=== PATIENT | male | born 1985 | race Caucasian/White ===

== ENCOUNTER 2021-12-13 22:40 | Inpatient (IN) | payer MEDICAID ==
[~2021-12-13] VITALS: Ht 172.7 cm; Wt 74.8 kg
[2021-12-13 22:46] VITALS: BP 140/90
--- NOTE | 2021-12-13 22:46 | NUR ---
Place on bed 6. Patient in hospital gown. Personal belongings removed from room and stored . Patient desire to harm self. Potentially harmful items removed from room. Under direct observation of RN.
--- NOTE | 2021-12-13 22:55 | NUR ---
Dr. Sims at bedside to exam patient.
--- NOTE | 2021-12-13 22:55 | NUR ---
biba to bed 6 on 5150 after being found wandering around store, incoherent. Pt is non sensical at this time, talking to self., unable to answer direct questions. PD at bedside.room cleared of moveable apparatus. pt in direct line of sigjt PMHx: Unknown.
[2021-12-13] MEDS ORDERED: OLANZapine 10 MG VIAL IM PRN (23:00)
[2021-12-13] MEDS ORDERED: diphenhydrAMINE 50 MG/ML VIAL IM PRN (23:00)
[2021-12-13] MEDS ORDERED: LORazepam 2 MG/ML VIAL IM PRN (23:00)
--- NOTE | 2021-12-13 23:11 | NUR ---
in bathroom attempting to get ua
--- NOTE | 2021-12-13 23:24 | NUR ---
UA TO LAB
--- NOTE | 2021-12-13 23:25 | NUR ---
PT'S BELONGINGS COLLECTED BY SECURITY AND TAKEN FOR STORAGE IN SAFE.
[2021-12-13 23:38] LABS: BASOPHILS # (AUTO) 0.1 K/uL (0.00-0.22); BASOPHILS % (AUTO) 0.8 % (0.0-2.0); EOSINOPHILS # (AUTO) 0.2 K/uL (0-0.4); EOSINOPHILS % (AUTO) 2.1 % (0.0-4.0); HEMATOCRIT 35.3 % (36-52); HEMOGLOBIN 11.9 g/dL (12.0-18.0); LYMPHOCYTES # (AUTO) 3.4 K/uL (2.0-11.5); LYMPHOCYTES % (AUTO) 30.5 % (20.5-51.1); MEAN CORPUSCULAR HEMOGLOBIN 29 pg (27-31); MEAN CORPUSCULAR HGB CONC 34 g/dL (33-37); MEAN CORPUSCULAR VOLUME 85.5 fL (80-94); MONOCYTES # (AUTO) 1.1 K/uL (0.8-1.0); MONOCYTES % (AUTO) 10.2 % (1.7-9.3); NEUTROPHILS # (AUTO) 6.2 K/uL (1.8-7.7); NEUTROPHILS % (AUTO) 56.4 % (42.2-75.2); PLATELET COUNT (AUTO) 371 K/uL (140-450); RED BLOOD CELL COUNT(AUTO) 4.13 MIL/uL (4.20-6.10); RED CELL DISTRIBUTION WIDTH 13.2 % (11.6-13.7)
--- NOTE | 2021-12-13 23:51 | NUR ---
TELE-PSYCH EVALUATION IN PROGRESS
[2021-12-14 00:09] LABS: ALBUMIN 3.5 g/dL (3.4-5.0); ANION GAP 10.4 (8-16); ASPARTATE AMINOTRANSFERASE 28 U/L (15-37); CARBON DIOXIDE 27.2 mmol/L (21-32); CHLORIDE 104 mmol/L (98-107); CREATININE 1.1 mg/dL (0.6-1.3); GFR ARICAN-AMERICAN 96 mL/min (>90); GLUCOSE 97 mg/dL (74-106); POTASSIUM 3.6 mmol/L (3.5-5.1); SODIUM SERUM 138 mmol/L (136-145); TOTAL BILIRUBIN 0.3 mg/dL (0.0-1.0); UREA NITROGEN, BLOOD 24 mg/dL (7-18)
[2021-12-14 00:10] LABS: ACETAMINOPHEN < 0.5 ug/ml (10-30); SALICYLATE < 2.8 mg/dL (2.8-20.0)
[2021-12-14 00:27] LABS: BARBITURATE, URINE NEGATIVE ng/ml (NEG <=200); BENZODIAZEPINE, URINE NEGATIVE ng/mL (NEG <=200); COCAINE, URINE NEGATIVE ng/mL (NEG <=300)
[2021-12-14 00:28] LABS: CANNABINOID, URINE POSITIVE ng/mL (NEG <=50); OPIATE, URINE NEGATIVE ng/mL (NEG <=2000); PHENCYCLIDINE SCREEN,URINE NEGATIVE ng/mL (NEG <=25)
--- NOTE | 2021-12-14 00:50 | NUR ---
PT MEDICALLY CLEARED AND CLINICALS FAXED TO [facility] FOR PLACEMENT
--- NOTE | 2021-12-14 02:00 | NUR ---
RESTING IN BED WITH EYES CLOSED. RESPIRATIONS REGULAR AND UNLABORED
--- NOTE | 2021-12-14 03:00 | NUR ---
SCAR SWAB OBTAINED AND SENT TO LAB
--- NOTE | 2021-12-14 06:00 | NUR ---
CONTINUES TO REST WITH EYES CLOSED. RESPIRATIONS REGULAR AND UNLABORED
--- NOTE | 2021-12-14 07:07 | NUR ---
AWAKE, AMBULATED TO BATHROOM THEN BACK TO BED.
[2021-12-14] MEDS ORDERED: OLANZapine 5 MG ODT PO PRN (07:15)
--- NOTE | 2021-12-14 08:11 | NUR ---
PT IN BED, EATING HIS BREAKFAST.
--- NOTE | 2021-12-14 12:04 | NUR ---
PT EATING HIS LUNCH.
--- NOTE | 2021-12-14 14:03 | NUR ---
PT PROVIDED WITH SANDWHICH, JUICE, JELLO, AND CRACKERS BEDSIDE
--- NOTE | 2021-12-14 14:06 | NUR ---
PT PROVIDED WITH COLORING BOOK, PAPER, AND CRANYONS
[2021-12-14] MEDS: NICOTINE TRANSD SYS 21 MG/24 HR PATCH TD SCH (14:33)
--- NOTE | 2021-12-14 14:33 | NUR ---
NICOTINE PATCH APPLIED ON L UPPER CHEST.
--- NOTE | 2021-12-14 16:42 | NUR ---
Pt report given to Judson freitas. Transfer of care at this time.
[2021-12-14 16:55] VITALS: BP 127/74
--- NOTE | 2021-12-14 16:55 | NUR ---
RECEIVED REPORT FROM ER NURSE. PATIENT WAS TRANSPORTED TO ROOM 109B. PT WAS ADMITTED FOR GRAVELY DISABLED. AOX4, ABLE TO MAKE NEEDS KNOWN. RESPIRATIONS EVEN AND UNLABORED. ON ROOM AIR AND NO DISTRESS NOTED. SKIN IS WARM, DRY, AND INTACT. IV SITE ON LFA 16G INTACT AND PATENT. DENIES DISCOMFORT OR PAIN AT THE MOMENT. ON A 5150 HOLD WITH SITTER AT BEDSIDE. PLAN OF CARE DISCUSSED. SAFETY PRECAUTIONS IN PLACE. CALL LIGHT WITHIN REACH. WILL CONTINUE TO MONITOR.
--- NOTE | 2021-12-14 17:14 | NUR ---
Late note - Intake was received. Information has been sent out to the following facilities for review for placement. [facility] - No male beds today [facility] - [facility] remains on their [facility] list [facility]....they do not take [place] Will continue to assist with placement and keep facility updated with any information regarding placement
--- NOTE | 2021-12-14 18:09 | NUR ---
Intake has also been faxed to [facility]
--- NOTE | 2021-12-14 19:14 | NUR ---
ENDORSED TO PSYCHOLOGICAL EXAMINER NURSE FOR CONTINUITY OF CARE. PT IS STABLE.
--- NOTE | 2021-12-14 19:15 | NUR ---
RECEIVED ENDORSEMENT FROM PATRIZIA PICKARD FOR CONTINUITY OF CARE. PATIENT IS STABLE AND AWAKE. A&OX4 VERBALLY RESPONSIVE AND ABLE TO COMMUNICATE NEEDS. ON ROOM AIR WITH NO APPARENT S/SX OF ACUTE DISTRESS. RESPIRATIONS EVEN AND UNLABORED WITH NO APPARENT S/SX OF ACUTE DISTRESS. PATIENT IS AMBULATORY AND CONTINENT OF VOID AND BM. PATIENT HAS AN IV TO THE LFA 16 INTACT/PATENT SL. PATIENT IS CURRENTLY ON 5150 HOLD WITH AN ACTIVE ORDER. PLAN OF CARE AND WHITE COMMUNICATION BOARD UPDATED. ALL SAFETY MEASURES IN PLACE. BED IN LOW/LOCKED POSITION. CALL LIGHT WITHIN REACH. WILL CONTINUE TO MONITOR.
[2021-12-14 20:00] VITALS: BP 121/70
--- NOTE | 2021-12-14 21:05 | NUR ---
ADMINISTERED SCHEDULED PO MEDICATIONS PER MD ORDER. TOLERATED WELL. DENIES PAIN. RESPIRATIONS EVEN AND UNLABORED WITH NO APPARENT S/SX OF ACUTE DISTRESS. SNACKS PROVIDED. ALL SAFETY MEASURES IN PLACE. BED IN LOW/LOCKED POSITION. SITTER PRESENT. WILL CONTINUE TO MONITOR.
[2021-12-14] MEDS: OLANZapine 2.5 MG TAB PO SCH (21:25)
--- NOTE | 2021-12-15 01:05 | NUR ---
CHECKED PATIENT. PATIENT IS STABLE AND ASLEEP. CHEST IS RISING AND FALLING EVENLY. RESPIRATIONS EVEN AND UNLABORED WITH NO APPARENT S/SX OF ACUTE DISTRESS. 1:1 SITTER PRESENT. ALL SAFETY MEASURES IN PLACE. BED IN LOW/LOCKED POSITION. WILL CONTINUE TO MONITOR.
--- NOTE | 2021-12-15 03:05 | NUR ---
PROVIDED SNACKS PER PATIENT REQUEST. DENIES PAIN. RESPIRATIONS EVEN AND UNLABORED WITH NO APPARENT S/SX OF ACUTE DISTRESS. ALL SAFETY MEASURES IN PLACE. 1:1 SITTER PRESENT. BED IN LOW/LOCKED POSITION. WILL CONTINUE TO MONITOR.
[2021-12-15 04:00] VITALS: BP 107/61
--- NOTE | 2021-12-15 05:05 | NUR ---
ROUNDED ON PATIENT. PATIENT IS STABLE AND ASLEEP. CHEST IS RISING AND FALLING EVENLY. RESPIRATIONS EVEN AND UNLABORED WITH NO APPARENT S/SX OF ACUTE DISTRESS. ALL NEEDS MET. 1:1 SITTER PRESENT. ALL SAFETY MEASURES IN PLACE. BED IN LOW/LOCKED POSITION. WILL CONTINUE TO MONITOR.
--- NOTE | 2021-12-15 07:20 | NUR ---
ENDORSED PATIENT TO PATRIZIA PICKARD FOR CONTINUITY OF CARE. PATIENT IS STABLE.
--- NOTE | 2021-12-15 07:22 | NUR ---
RECEIVED REPORT FROM RELISH BLENDER NURSE FOR CONTINUITY OF CARE. PATIENT WAS TRANSPORTED TO ROOM 109B. AOX4, ABLE TO MAKE NEEDS KNOWN. RESPIRATIONS EVEN AND UNLABORED. ON ROOM AIR AND NO DISTRESS NOTED. SKIN IS WARM, DRY, AND INTACT. IV SITE ON LFA 16G INTACT AND PATENT. DENIES DISCOMFORT OR PAIN AT THE MOMENT. ON A 5150 HOLD WITH SITTER AT BEDSIDE. PLAN OF CARE DISCUSSED. SAFETY PRECAUTIONS IN PLACE. CALL LIGHT WITHIN REACH. WILL CONTINUE TO MONITOR.
[2021-12-15] MEDS ORDERED: OLAN2.5T1 PO (07:46)
[2021-12-15] MEDS: OLANZapine 2.5 MG TAB PO SCH (08:41)
[2021-12-15] MEDS: NICOTINE TRANSD SYS 21 MG/24 HR PATCH TD SCH (08:42)
--- NOTE | 2021-12-15 09:10 | NUR ---
ALL SCHEDULED MEDS GIVEN. PT IS STABLE. NO DISTRESS NOTED. WILL CONTINUE TO MONITOR
--- NOTE | 2021-12-15 09:30 | NUR ---
ENDORSED DISCHARGE INSTRUCTIONS TO PATIENT. PATIENT VERBALIZED UNDERSTANDING AND SIGNED DISCHARGED FORMS.
[2021-12-15 10:29] VITALS: BP 119/76
--- NOTE | 2021-12-15 11:00 | NUR ---
PATIENT DISCHARGED OFF THE UNIT. PT WAS PICKED UP BY A FRIEND AT THE FRONT LOBBY. IV AND ID BAND REMOVED. PATIENT WAS STABLE PRIOR TO DISCHARGE.
== END 2021-12-15 11:10 | disposition home or self-care (01) | DRG 427 ==
LOC: MED 22:40 → MMU 12-14 16:18 → MTU 12-14 16:33
PROVIDERS: ADMIT General Practice; ATTEND General Practice
DX: E05.00 Thyrotoxicosis with diffuse goiter without thyrotoxic crisis or storm (principal); F25.9 Schizoaffective disorder, unspecified; Z20.822 Contact with and (suspected) exposure to COVID-19; Z91.14 Patient's other noncompliance with medication regimen
CPT/HCPCS: 36415; 80053; 80305; 85025; 87081; 87635-QW; C9803-CS; G0480; G0482; J1200; J2060; J3490

== ENCOUNTER 2022-07-29 17:13 | Emergency (ER) | payer MEDICAID ==
[~2022-07-29] VITALS: Ht 179.6 cm; Wt 77.6 kg
[~2022-07-29 17:13] MED LIST: OLAN2.5T1 PO
--- NOTE | 2022-07-29 17:55 | NUR ---
Ruth blake in ED - 07/29/22 at 1858 by [facility] PATIENT LEFT WITHOUT BEING SEEN BY DR. DR BARRY. NO FURTHER CARE PROVIDED FOR PATIENT.
[2022-07-29 18:53] VITALS: BP 106/66
[2022-07-29] MEDS ORDERED: LIDOCAINE/EPI 2% 1:100000 20 ML VIAL INJ ONE (20:50)
--- NOTE | 2022-07-29 20:57 | NUR ---
PT TO BED 05.
--- NOTE | 2022-07-29 21:05 | NUR ---
LIDO AT BEDSIDE. TECH SETTING UP FOR I/D
[2022-07-29] MEDS ORDERED: IBUP-2213 PO (23:34)
[2022-07-29] MEDS ORDERED: CLIN300C61 PO (23:34)
[2022-07-29] MEDS ORDERED: CLINDAMYCIN 150 MG CAP PO ONE (23:35)
[2022-07-29] MEDS ORDERED: IBUPROFEN 600 MG TAB PO ONE (23:35)
[2022-07-29] MEDS ORDERED: ACETAMINOPHEN EXTRA STRENGTH 500 MG TAB PO ONE (23:35)
[2022-07-29 23:51] VITALS: BP 126/80
--- NOTE | 2022-07-29 23:52 | NUR ---
Patient discharged with v/s stable. Written and verbal after care instructions given and explained. Patient alert, oriented and verbalized understanding of instructions. Ambulatory with steady gait. All questions addressed prior to discharge. ID band removed. Patient advised to follow up with PMD. Rx of Clindamycin, Ibuprofen sent electronically. Patient educated on indication of medication including possible reaction and side effects. Opportunity to ask questions provided and answered.
== END 2022-07-29 23:51 | disposition home or self-care (01) ==
LOC: MED 17:13
DX: L02.413 Cutaneous abscess of right upper limb (principal); G40.909 Epilepsy, unspecified, not intractable, without status epilepticus; F20.9 Schizophrenia, unspecified; F17.210 Nicotine dependence, cigarettes, uncomplicated; F12.90 Cannabis use, unspecified, uncomplicated; F15.90 Other stimulant use, unspecified, uncomplicated
CPT/HCPCS: 10060; 99283; J2001

== ENCOUNTER 2022-08-01 10:05 | Emergency (ER) | payer MEDICAID ==
[~2022-08-01] VITALS: Ht 185.4 cm; Wt 79.4 kg
[~2022-08-01 10:05] MED LIST changes: +CLIN300C61 PO; +IBUP-2213 PO
--- NOTE | 2022-08-01 10:15 | NUR ---
called, no answer
--- NOTE | 2022-08-01 10:40 | NUR ---
PT AMBULATED TO LOBBY
[2022-08-01 10:42] VITALS: BP 141/78
--- NOTE | 2022-08-01 10:44 | NUR ---
37/M WALKED IN C/O RIGHT FOREARM ABSCESS. PT WAS SEEN 07/29 AND WAS DC WITH I/D, PACKING AND ATBX PX. PT STATES HE DID NOT GET PX FILLED BECAUSE IT WAS EXPENSIVE AND DOES NOT KNOW WHY HE SHOULD BE TAKING THE MEDS. PT ALSO REPORTS REMOVING THE PACKING HIMSELF YESTERDAY. AFEBRILE AT BEDSIDE. PMH: SEIZURE, SCHIZO ALLERGIC TO SULFA
[2022-08-01] MEDS ORDERED: IBUPROFEN 600 MG TAB PO ONE (11:40)
--- NOTE | 2022-08-01 11:53 | NUR ---
PT CALLED IN LOBBY FOR CABLE TENDER AND WOUND CARE BUT NO ANSWER.
[2022-08-01] MEDS ORDERED: IBUP-2213 PO (11:56)
--- NOTE | 2022-08-01 11:59 | NUR ---
PT CALLED IN LOBBY, NO ANSWER
[2022-08-01] MEDS ORDERED: BACITRACIN OINT 500 UNITS/GM PKT TP ONE ×2 (12:18→12:30)
--- NOTE | 2022-08-01 12:37 | NUR ---
Patient discharged with v/s stable. Written and verbal after care instructions ABOUT SKIN ABSCESS given and explained. Patient alert, oriented and verbalized understanding of instructions. Ambulatory with steady gait. All questions addressed prior to discharge. ID band removed. Patient advised to follow up with PMD. Rx of MOTRIN given. Patient educated on indication of medication including possible reaction and side effects. Opportunity to ask questions provided and answered.
== END 2022-08-01 12:37 | disposition home or self-care (01) ==
LOC: MED 10:05
DX: Z48.00 Encounter for change or removal of nonsurgical wound dressing (principal); Z88.2 Allergy status to sulfonamides
CPT/HCPCS: 99283